=== PATIENT | female | born 2000 | race Caucasian/White ===

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

== ENCOUNTER 2021-11-03 05:40 | Inpatient (IN) ==
--- NOTE | 2021-10-24 11:04 | Anesthesiology Consultation ---
Date of Service October 24, 2021 Assessment & Plan (1) Encounter for pre-operative examination: COVID screening: Per assessment on 10/24: No known COVID-19 positive contacts or current COVID-19 related symptoms. Travel screen negative. Patient vaccinated. 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 History Surgery Operation Date: 11/03/21 07:30 Proposed Procedures p Section in LD (Delivery of Baby Through Abdominal Incision) - Ten Cope MD Height/Weight Height: 5 ft 8 in Weight: 83.915 kg Allergies Allergy/AdvReac Type Severity Reaction Status Date / Time Iodinated Contrast Media Allergy Severe Anaphylaxis Verified 10/24/21 08:31 bee venom protein (honey bee) Allergy Intermediate Rash, Verified 10/24/21 10:25 swelling, headache, scratchy throat gluten Allergy Unknown Celiac - Verified 10/24/21 10:25 GI issues oxytocin [From Pitocin] Allergy Unknown Chest Verified 10/24/21 10:25 pain, difficulty breathing Medications Home Medications Medication Instructions Recorded Confirmed Last Taken epinephrine 0.3 mg/0.3 mL 0.3 ml IM ONCE PRN anaphylaxis #2 01/05/20 10/24/21 Unknown injection, auto-injector ea [id number] 3-fat com #1 27 1 cap PO QPM 04/26/20 10/24/21 Unknown mg-1 mg-300 mg capsule ferrous sulfate [Iron (ferrous 1 tab PO QPM 08/19/21 10/24/21 Unknown sulfate)] Past Medical History Medical History Allergic rhinitis Anxiety Childhood celiac disease Chronic back pain Chronic headaches Depression GERD (gastroesophageal reflux disease) Hiatal hernia History of COVID-19 Dx 05/2021, Flu-like symptoms, fatigue and fever at time > resolved Migraine Hx Mobitz type 1 second degree AV block Noted during 2014 ER visit for syncope. Patient subsequently seen by cardio for syncope evaluation ()- syncope was suspected vasovagal/normal subsequent EKGs. Not noted on most recent EKG 11/27/20. Past Family History Family History Grandmother (Maternal) Cardiac disorder Myocardial infarction Father Diabetes Fibromyalgia Hypercholesterolemia Peripheral vascular disease Grandmother (Paternal) Ovarian cancer Diabetes Fibromyalgia Hypercholesterolemia Breast cancer Family history of reaction to anesthesia SLOW TO WAKE UP/PONV Hypertension Mother Breast cancer H/O: hysterectomy Denies family history of Prostate cancer Past Surgical History Surgical History H/O hernia repair History of colonoscopy 2018 History of esophagogastroduodenoscopy (EGD) Hx of section S/P laparoscopy Diagnostic Lap for endometriosis Social History Smoking Status: Never smoker Do You Dip or Chew Tobacco: No Hx Alcohol Use: No Hx Substance Use: No substance use type: does not use Lab Results Anesthesia Preop Results Results Anesthesia Widget: Hgb 10.0 g/dl (12.0-16.0) L 09/15/21 Hct 30.7 % (34.1-44.9) L 09/15/21 Urine Color Yellow 10/03/21 Urine Appearance Clear (Clear) 10/03/21 Urine pH 7.5 (4.5-7.5) 10/03/21 Urine Specific Homer 1.018 (1.000-1.030) 10/03/21 Urine Protein Negative (Negative) 10/03/21 Urine Glucose (UA) Negative (Negative) 10/03/21 Urine Ketones Negative (Negative) 10/03/21 Urine Blood Negative (Negative) 10/03/21 Urine Nitrite Negative (Negative) 10/03/21 Urine Bilirubin Negative (Negative) 10/03/21 Urine Urobilinogen Negative (Negative) 10/03/21 Urine Leukocyte Esterase Negative (Negative) 10/03/21 Testing Electrocardiogram Date: 11/27/20 SR at 63bpm. "Normal ECG"
[2021-11-03] MEDS ORDERED: SODIUM CHLORIDE 0.9% 250 ML IV PRN (05:55)
[2021-11-03] MEDS ORDERED: CITRIC ACID/SODIUM CITRATE 15 ML UDC PO SCH (06:00)
[2021-11-03] MEDS ORDERED: ceFAZolin 2,000 MG in SYRINGE 0 ML IV SCH (06:00)
[2021-11-03] MEDS ORDERED: LACTATED RINGER'S 1,000 ML IV SCH (06:00)
[2021-11-03 06:28] LABS: Basophils # (auto) 0.02 K/uL (0-0.2); Basophils % (auto) 0.3 %; Eosinophils # (auto) 0.13 K/uL (0-0.50); Eosinophils % (auto) 1.7 %; Hematocrit (blood only) 30.2 % (34.1-44.9); Hemoglobin 9.6 g/dl (12.0-16.0); Immature Granulocytes # (auto) 0.04 K/uL (0.00-0.02); Immature Granulocytes % (auto) 0.5 %; Lymphocytes # (auto) 2.19 K/uL (1.2-3.4); Lymphocytes % (auto) 29.2 %; Mean Corpuscular Hemoglobin 27.4 pg (25.0-34.0); Mean Corpuscular Hgb Conc 31.8 g/dL (32.0-36.0); Mean Platelet Volume 10.6 fL (9.4-12.3); Monocytes # (auto) 0.77 K/uL (0.24-0.82); Monocytes % (auto) 10.3 %; Neutrophils # (auto) 4.35 K/uL (1.4-6.5); Platelet Count 190 K/uL (130-400); RDW Standard Deviation 49.9 fL (36.4-46.3); Red Blood Count 3.51 M/uL (3.93-5.22)
[2021-11-03 07:06] LABS: Appearance Urine Clear (Clear); Bilirubin Urine Negative (Negative); Blood Urine Negative (Negative); Color Urine Yellow; Glucose Urine UA Negative (Negative); Ketones Urine Trace (Negative); Leukocyte Esterase Urine Negative (Negative); Nitrite Urine Negative (Negative); Protein Urine Negative (Negative); Urobilinogen Urine Negative (Negative)
--- NOTE | 2021-11-03 07:23 | History & Physical Report ---
Date of Service November 03, 2021 Assessment & Plan (1) Previous delivery affecting , antepartum: (2) Short interval between pregnancies affecting , antepartum: (3) Supervision of normal intrauterine in multigravida: Plan 20yo at 39w5d [place]. Planned repeat . 1. Fetus: Cat 1 2. - Consents signed 3. Vitals normal 4. PPH risk moderate - T&S Admission and Anticipated Discharge Date Admission Date: November 03, 2021 History of Present Illness Primary Care Provider: Amarilys Mcleod, DO 20yo at 39w5d GA. Presents for repeat with HX of LTCS x2. Initial OB Labs (04/21/21) Blood Type & RH O positive Antibody Screen negative HCT/HGB 39.9/12.9 Platelets 242 Hep C IgG 13yrs+ Old negative Pap Test normal (03/20/21) Chlamydia negative Gonorrhea negative Rubella immune RPR negative Urine Culture/Screen HBsAg non reactive HIV negative MCV NT WNL cf/sma neg in first per her report--[facility] NT test at 13 weeks normal--[facility] Allergies Allergy/AdvReac Type Severity Reaction Status Date / Time Iodinated Contrast Media Allergy Severe Anaphylaxis Verified 10/29/21 15:14 bee venom protein (honey bee) Allergy Intermediate Rash, Verified 10/29/21 15:14 swelling, headache, scratchy throat gluten Allergy Unknown Celiac - Verified 10/29/21 15:14 GI issues oxytocin [From Pitocin] Allergy Unknown Chest Verified 10/29/21 15:14 pain, difficulty breathing Home Medications Medication Instructions Recorded Confirmed Type [id number]-[id number]-omega 3-fat com #1 27 1 cap PO QPM 04/26/20 11/03/21 History mg-1 mg-300 mg capsule ferrous sulfate [Iron (ferrous 1 tab PO QPM 08/19/21 11/03/21 History sulfate)] Patient History Medical History Allergic rhinitis Anxiety Childhood celiac disease Chronic back pain Chronic headaches Depression GERD (gastroesophageal reflux disease) Hiatal hernia History of COVID-19 Dx 05/2021, Flu-like symptoms, fatigue and fever at time > resolved Migraine Hx Mobitz type 1 second degree AV block Noted during 2014 ER visit for syncope. Patient subsequently seen by cardio for syncope evaluation ()- syncope was suspected vasovagal/normal subsequent EKGs. Not noted on most recent EKG 11/27/20. Surgical History H/O hernia repair History of colonoscopy 2018 History of esophagogastroduodenoscopy (EGD) Hx of section S/P laparoscopy Diagnostic Lap for endometriosis Family History Grandmother (Maternal) Cardiac disorder Myocardial infarction Father Diabetes Fibromyalgia Hypercholesterolemia Peripheral vascular disease Grandmother (Paternal) Ovarian cancer Diabetes Fibromyalgia Hypercholesterolemia Breast cancer Family history of reaction to anesthesia SLOW TO WAKE UP/PONV Hypertension Mother Breast cancer H/O: hysterectomy Denies family history of Prostate cancer Social History Smoking Status: Never smoker Second Hand Exposure: No; Do You Dip or Chew Tobacco: No; Hx Alcohol Use: No Hx Substance Use: No Preferred Language: Luxembourgish Communication Ability: Effective Visual Impairment: Limited Hearing Ability: Normal Restrike Hammer Operator Required: No Beliefs That Will Affect Care: None marital status: marital status details: Tj(22) [phone] Current Living Situation: Spouse Current Living Situation Comment: lives with spouse and 2 children. 2 dogs. current occupational status: unemployed current occupation: n/a How many Children do You have: 2 Other Information That Helps Us Care for You: No Feels Safe at Home: Yes Safety Concerns: Feels Safe At This Time Childhood Exposure to Second-Hand Smoke: No caffeine: Yes (drinks tea daily) during the past year weight has: remained stable Dental Care, Regularly: Yes Physical Activity Frequency: 1-2 Times per Week Seatbelt Use: always Sunscreen Use: Yes Assistive Devices: Glasses Physical Exam Constitutional: WD/WN, vitals as above well developed, well nourished and + well hydrated; no acute distress Eyes: PERRL, conjunctivae normal, anicteric sclerae Neck: trachea midline, no thyromegaly Respiratory: normal respiratory effort, lungs clear to auscultation no respiratory distress, no labored breathing and no cough Cardiovascular: RRR, no murmur, no edema Heart Sounds: normal S1 and normal S2 Gastrointestinal (Abdomen): normal bowel sounds, soft, nontender, no hepatosplenomegaly Inspection/Auscultation: abdomen normal to inspection Percussion/Palpation: abdomen soft; abdomen nontender, no guarding and abdomen not rigid Skin: no rashes, warm and dry normal turgor Psychiatric: A+Ox3, euthymic affect Apperance: appropriately dressed and appropriately groomed Genitourinary: OB Exam Abdomen: + vertex OB Exam Monitor Tracing: + external FHT monitor used, + external uterine monitor used, + category I and + normal FHT variability Results & Data ([facility]) Vital Signs (Past 12 Hours) Vital Signs Temp Pulse Resp BP 11/03/21 07:06 36.8 C 88 16 112/70 11/03/21 05:55 36.6 C 18 11/03/21 07:10 88 112/70 11/03/21 05:51 88 114/68 Coding Level of Care Code None Diagnoses Previous delivery affecting , antepartum O34.219 Short interval between pregnancies affecting , antepartum O09.899 Supervision of normal intrauterine in multigravida Z34.80
[2021-11-03] MEDS ORDERED: MoRPHine SULFATE PF 1 MG/ML 10 ML AMP/VIAL ONE (07:26)
[2021-11-03] MEDS ORDERED: MIDAZOLAM HCL 1 MG/ML 2ML VIAL ONE (08:19)
[2021-11-03] MEDS ORDERED: ONDANSETRON INJ 2 MG/ML 2 ML VIAL ONE (08:31)
[2021-11-03] MEDS ORDERED: fentaNYL citrate 100 MCG/2 ML VIAL ONE (08:33)
[2021-11-03] MEDS ORDERED: HYDROmorphone INJ 0.5 MG/0.5 ML SYR IV PRN (08:36)
[2021-11-03] MEDS ORDERED: MoRPHine SULFATE PF 1 MG/ML 10 ML AMP/VIAL INT SPINAL ONE (08:36)
[2021-11-03] MEDS ORDERED: NALOXONE HCL 1 MG in SODIUM CHLORIDE 0.9% 1000ML 1,000 ML IV PRN (08:36)
[2021-11-03] MEDS ORDERED: ONDANSETRON INJ 2 MG/ML 2 ML VIAL IV PRN (08:36)
[2021-11-03] MEDS ORDERED: LACTATED RINGER'S 500 ML IV PRN (08:36)
[2021-11-03] MEDS ORDERED: ePHEDrine sulfate 50 MG/ML AMP IV PRN (08:36)
[2021-11-03] MEDS ORDERED: NALOXONE HCL 0.08 MG in SYRINGE 1.8 ML IV PRN (08:36)
[2021-11-03] MEDS ORDERED: diphenhydrAMINE 50 MG/ML VIAL IV PRN (08:36)
[2021-11-03] MEDS ORDERED: NALOXONE HCL 0.4 MG/1 ML VIAL/CARP IV PRN (08:36)
[2021-11-03] MEDS ORDERED: NALBUPHINE HCL INJ 10 MG/ML AMP IV PRN (08:36)
[2021-11-03] MEDS ORDERED: PHENYLEPHRINE 100MCG/ML 5ML SYR ONE (08:40)
[2021-11-03] MEDS ORDERED: OXYTOCIN 10 UNITS/ML 10ML VIAL ONE (08:40)
[2021-11-03] MEDS ORDERED: SODIUM CHLORIDE 0.9% 1000ML 1,000 ML IV SCH (08:45)
[2021-11-03] MEDS ORDERED: NO NARCOTICS OR SEDATIVES SCH (08:45)
[2021-11-03] MEDS ORDERED: DC INTRASPINAL MORPHINE SCH (08:45)
--- NOTE | 2021-11-03 08:59 | Post Operative Brief Note ---
PG Immediate Post Op with CF Date of Surgery November 03, 2021 Pre & Post Diagnosis Operation Date: 11/03/21 07:30 Pre-Op Diagnosis: Hx of Section, desires repeat Post-Op Diagnosis: Same as pre-op I identified the patient and participated in the time-out.: Yes Procedure Operation Date: 11/03/21 07:30 Actual Procedures p Section in LD (Delivery of Baby Through Abdominal Incision); Live female child at 0816(Bilateral) - Ten Cope MD Surgeon Ten Cope MD College Archivist Dr. Santiago Estimated Blood Loss 600 Findings Consistent with Post-Op Diagnosis Specimens Specimen Description: Placenta-hold Cord Blood Drains De León Catheter (Inserted after spinal, patent and draining clear yellow urine throughout procedure.) OB Procedure charges OB Charges 63544
[2021-11-03] MEDS ORDERED: KETOROLAC 30 MG/ML VIAL IV ONE (11:40)
[2021-11-03] MEDS ORDERED: MAGNESIUM HYDROXIDE SUSP 30 ML UDC PO PRN (12:21)
[2021-11-03] MEDS ORDERED: HYDROCORTISONE ACETATE 25 MG SUPP PR PRN (12:21)
[2021-11-03] MEDS ORDERED: SENNA 8.6 MG TAB PO PRN (12:21)
[2021-11-03] MEDS ORDERED: BENZOCAINE 20% AER SPR 82.5 GM CAN EXT PRN (12:21)
[2021-11-03] MEDS ORDERED: DIPHTHERIA/TETANUS/PERTUSSIS 0.5 ML SYR/VIAL IM ONE (12:21)
[2021-11-03] MEDS: LACTATED RINGER'S 1,000 ML IV SCH ×2 (12:53→21:00)
[2021-11-03] MEDS: SIMETHICONE 80 MG CHEW PO SCH ×3 (12:53→20:30)
--- NOTE | 2021-11-03 13:56 | Anesthesiology Progress Note ---
Date of Service November 03, 2021 Anesthesia Post Procedure Vital Signs Vital Signs: Temp Pulse Pulse Resp BP BP Pulse Ox 11/03/21 13:00 16 98 11/03/21 11:15 80 16 113/57 L 100 11/03/21 12:15 16 97 11/03/21 11:53 16 100 11/03/21 11:53 36.7 C 73 16 96/61 L 100 11/03/21 10:15 84 16 108/56 L 99 11/03/21 10:05 78 16 117/63 99 11/03/21 10:35 71 16 109/55 L 11/03/21 09:45 79 16 103/70 99 11/03/21 09:35 90 16 97/72 L 98 11/03/21 09:25 66 18 103/64 99 11/03/21 10:45 84 16 100/61 99 11/03/21 09:15 36.5 C 68 18 106/63 97 11/03/21 09:18 36.5 C 68 16 106/63 98 11/03/21 07:06 36.8 C 88 16 112/70 11/03/21 05:55 36.6 C 18 11/03/21 11:25 81 109/56 L 11/03/21 11:21 77 100 11/03/21 11:16 100 11/03/21 11:16 83 11/03/21 11:16 81 113/57 L 11/03/21 11:11 78 100 11/03/21 11:06 71 100 11/03/21 11:05 68 107/70 11/03/21 11:01 79 99 11/03/21 10:56 77 100 11/03/21 10:55 71 111/67 11/03/21 10:51 80 100 11/03/21 10:46 100 11/03/21 10:46 80 11/03/21 10:46 81 100/61 11/03/21 10:41 79 100 11/03/21 10:36 70 100 11/03/21 10:35 75 110/57 L 11/03/21 10:31 79 99 11/03/21 10:26 99 11/03/21 10:26 76 11/03/21 10:26 74 116/60 11/03/21 10:21 80 100 11/03/21 10:16 72 99 11/03/21 10:15 75 108/56 L 11/03/21 10:11 75 100 11/03/21 10:06 74 117/63 99 11/03/21 10:01 78 100 11/03/21 09:56 99 11/03/21 09:56 67 11/03/21 09:56 71 109/55 L 11/03/21 09:51 71 99 11/03/21 09:46 99 11/03/21 09:46 82 11/03/21 09:46 79 103/70 11/03/21 09:41 75 100 11/03/21 09:36 76 98 11/03/21 09:35 90 97/72 L 11/03/21 09:31 75 99 11/03/21 09:26 59 L 99 11/03/21 09:25 68 103/64 11/03/21 09:18 68 106/63 11/03/21 09:09 69 106/64 11/03/21 07:10 88 112/70 11/03/21 05:51 88 114/68 O2 Del Method 11/03/21 13:00 11/03/21 11:15 Room Air 11/03/21 12:15 11/03/21 11:53 11/03/21 11:53 Room Air 11/03/21 10:15 11/03/21 10:05 11/03/21 10:35 11/03/21 09:45 11/03/21 09:35 11/03/21 09:25 11/03/21 10:45 Room Air 11/03/21 09:15 11/03/21 09:18 Room Air 11/03/21 07:06 11/03/21 05:55 11/03/21 11:25 11/03/21 11:21 11/03/21 11:16 11/03/21 11:16 11/03/21 11:16 11/03/21 11:11 11/03/21 11:06 11/03/21 11:05 11/03/21 11:01 11/03/21 10:56 11/03/21 10:55 11/03/21 10:51 11/03/21 10:46 11/03/21 10:46 11/03/21 10:46 11/03/21 10:41 11/03/21 10:36 11/03/21 10:35 11/03/21 10:31 11/03/21 10:26 11/03/21 10:26 11/03/21 10:26 11/03/21 10:21 11/03/21 10:16 11/03/21 10:15 11/03/21 10:11 11/03/21 10:06 11/03/21 10:01 11/03/21 09:56 11/03/21 09:56 11/03/21 09:56 11/03/21 09:51 11/03/21 09:46 11/03/21 09:46 11/03/21 09:46 11/03/21 09:41 11/03/21 09:36 11/03/21 09:35 11/03/21 09:31 11/03/21 09:26 11/03/21 09:25 11/03/21 09:18 11/03/21 09:09 11/03/21 07:10 11/03/21 05:51 Pain Intensity Abdomen: Pain Intensity: 3 Transfer of Care Handoff Completed per policy Notes Mental Status: alert / awake / arousable and participated in evaluation Nausea / Vomiting: adequately controlled Pain: adequately controlled Airway Patency, RR, SpO2: stable & adequate BP & HR: stable & adequate Hydration State: stable & adequate Neuraxial Anesthesia: was administered and sensory block is resolving Anesthetic Complications: no major complications apparent and Pt Satisfied with anesthetic care
--- NOTE | 2021-11-03 14:56 | Operative Report (OR) ---
DATE OF SERVICE: 11/03/2021 PROCEDURE: Repeat low transverse section. SURGEON: Ten Cope MD. JAVA WEB ARCHITECT: Antoinette Santiago MD. PREOPERATIVE DIAGNOSES: 1. Single intrauterine at 39 weeks 5 days gestational age. 2. History of x2, desired repeat. POSTOPERATIVE DIAGNOSES: 1. Single intrauterine at 39 weeks 5 days gestational age. 2. History of x2, desired repeat. 3. Status post procedure. ESTIMATED BLOOD LOSS: 600 mL DRAINS: None. FLUIDS: Continuous lactated Ringer. URINE OUTPUT: Per De León catheter. FLUIDS: Continuous lactated Ringer. URINE OUTPUT: Per De León catheter. COMPLICATIONS: None. FINDINGS: Viable female with weight and Apgars pending. DESCRIPTION OF PROCEDURE: The patient was taken to the operating room after consents were assured. Upon presentation, she was properly identified, spinal anesthesia was obtained without difficulty. Ivonne he patient was then prepped and draped in normal sterile fashion. Preprocedural timeout was shamir d. A Pfannenstiel incision was made with a knife. This was carried down to underlying fascia with ivonne mascorro Bovie. The patient's prior incision was noted to have significant scarring and a scar revision wa s also performed and the portion of scar disposed off. The fascia was nicked at the midline with a kn rafael. This was extended laterally with pickups and Stark scissors. The fascia was then grasped with K laraers x2, elevated off the underlying rectus muscles using blunt dissection. Inferior aspect of the fascia was grasped with Kochers x2 and elevated off the underlying rectus muscles using blunt dissec tion and Stark scissors. There was already noted to be a midline opening and this was placed on [facility] to provide adequate room for delivery and a bladder blade was inserted. Bladder flap was created and a low transverse uterine incision was made with a knife. This was extended laterally with tracti on to provide adequate room for delivery of the head and the head of the was noted to be in c ephalic position, delivered without difficulty, body and shoulders quickly followed. was not ed to be vigorous upon delivery and a very second delayed cord clamping was initiated. Cord was then double clamped and cut. taken over to the waiting nursery staff. Cord blood was obtained. Attention was then turned to delivery of placenta, which was delivered intact, 3-vessel cord, gentle cord traction. The uterus was then exteriorized. Several passes were made inside to remove any rem aining membranes with a dry lap. The uterus was wrapped in a wet lap. The hysterotomy was then reap proximated with 0 Vicryl continuous running lock stitch. A second imbricating layer of 0 Vicryl was then performed. The posterior cul-de-sac was cleaned of clots and debris. The hysterotomy was noted to be hemostatic. Uterus returned to the maternal abdomen. Right and left pericolic gutters were c leaned of clots and debris. The hysterotomy was noted to have continuous hemostasis. The patient sp raymundo of Retzius, subcutaneous and muscle layers were inspected and noted to be hemostatic. The fascia was then reapproximated with 0 Vicryl continuous running stitch. The subcutaneous layers were reapp roximated with a 2-0 plain in a single continuous running stitch. The skin was reapproximated with 3 -0 Vicryl in a subcuticular stitch and a compression bandage was placed on top. Needle, sponge, and instrument counts were correct at the completion of the case. Both mother and stable in the immediate post-delivery period. Job ID: [id number]
[2021-11-03] MEDS: IBUPROFEN 600 MG TAB PO PRN ×2 (16:21→20:30)
[2021-11-03] MEDS ORDERED: oxyCODONE/ACETAMINOPHEN 5mg/325mg TAB PO PRN (19:48)
[2021-11-03] MEDS: DOCUSATE SODIUM 100 MG CAP PO SCH (20:29)
[2021-11-04] MEDS ORDERED: KETOROLAC 30 MG/ML VIAL ONE (01:23)
[2021-11-04] MEDS ORDERED: KETOROLAC 30 MG/ML VIAL IV ONE (01:32)
[2021-11-04] MEDS ORDERED: KETOROLAC 30 MG/ML VIAL IV PRN (02:37)
[2021-11-04] MEDS ORDERED: ONDANSETRON INJ 2 MG/ML 2 ML VIAL IV PRN (02:37)
[2021-11-04] MEDS ORDERED: diphenhydrAMINE Capsule 25 MG CAP PO PRN (02:37)
[2021-11-04] MEDS ORDERED: diphenhydrAMINE 50 MG/ML VIAL IV PRN (02:37)
[2021-11-04] MEDS ORDERED: PROMETHAZINE HCL 25 MG in SODIUM CHLORIDE 0.9% 50 ML IV PRN (02:37)
[2021-11-04 06:16] LABS: Basophils # (auto) 0.02 K/uL (0-0.2); Basophils % (auto) 0.2 %; Eosinophils # (auto) 0.15 K/uL (0-0.50); Eosinophils % (auto) 1.7 %; Hematocrit (blood only) 27.5 % (34.1-44.9); Hemoglobin 8.9 g/dl (12.0-16.0); Immature Granulocytes # (auto) 0.03 K/uL (0.00-0.02); Immature Granulocytes % (auto) 0.3 %; Lymphocytes # (auto) 1.97 K/uL (1.2-3.4); Lymphocytes % (auto) 22.8 %; Mean Corpuscular Hgb Conc 32.4 g/dL (32.0-36.0); Mean Corpuscular Volume 86.5 fL (80.0-100.0); Mean Platelet Volume 11.2 fL (9.4-12.3); Monocytes # (auto) 1.09 K/uL (0.24-0.82); Monocytes % (auto) 12.6 %; Neutrophils # (auto) 5.39 K/uL (1.4-6.5); Neutrophils % (auto) 62.4 %; Platelet Count 182 K/uL (130-400); RDW Standard Deviation 50.1 fL (36.4-46.3); Red Blood Count 3.18 M/uL (3.93-5.22); White Blood Count 8.65 K/ul (4.8-10.8)
--- NOTE | 2021-11-04 06:52 | Obstetrical Progress Note ---
Date of Service <Tangela Holbrook MD - Last Filed: 11/04/21 07:40> November 04, 2021 Assessment & Plan <Tangela Holbrook MD - Last Filed: 11/04/21 07:40> (1) Encounter for care and examination after delivery: PPD1 satisfactory progress. encourage ambulation follow up in 6 weeks <Raysa Mendieta MD, FACOG - Last Filed: 11/04/21 07:46> (1) Encounter for care and examination after delivery: Subjective <Tangela Holbrook MD - Last Filed: 11/04/21 07:40> Ambulation: ambulating normally Voiding: no voiding problems Passing Gas:: Yes Diet Tolerance:: regular diet Lochia:: Moderate Feeding Type:: breast feeding Physical Exam <Tangela Holbrook MD - Last Filed: 11/04/21 07:40> Constitutional WD/WN, vitals as above no acute distress Respiratory normal respiratory effort, lungs clear to auscultation Cardiovascular RRR, no murmur, no edema Extremities: no calf tenderness Gastrointestinal (Abdomen) uterus firm at the level of the umbilicus, abdominal bandage in place - c/d/i, no purulent discharge or strike through Psychiatric A+Ox3, euthymic affect Results & Data ([facility]) <Tangela Holbrook MD - Last Filed: 11/04/21 07:40> Vital Signs (Past 12 Hours) Vital Signs Temp Pulse Resp BP Pulse Ox Pulse Ox Pulse Ox 11/04/21 02:00 20 100 11/04/21 03:20 36.9 C 70 18 96/60 L 95 11/04/21 03:20 95 11/04/21 01:00 18 96 11/04/21 00:00 20 97 11/03/21 23:04 36.8 C 72 18 90/54 L 97 11/03/21 23:04 97 11/03/21 23:04 18 97 11/03/21 22:08 18 96 11/03/21 21:00 18 97 11/03/21 20:00 20 100 11/03/21 19:30 20 99 11/03/21 19:30 36.6 C 80 20 99/64 L 99 11/03/21 19:05 18 98 O2 Del Method O2 Del Method O2 Del Method 11/04/21 02:00 11/04/21 03:20 Room Air 11/04/21 03:20 Room Air 11/04/21 01:00 11/04/21 00:00 11/03/21 23:04 Room Air 11/03/21 23:04 Room Air 11/03/21 23:04 11/03/21 22:08 11/03/21 21:00 11/03/21 20:00 11/03/21 19:30 11/03/21 19:30 Room Air 11/03/21 19:05 <Raysa Mendieta MD, FACOG - Last Filed: 11/04/21 07:46> Co-Signing Physician Notes Resident Physician Supervision Note: I was present with DrIzabela [Name of resident] during the history and exam. I discussed the case with the resident and agree with the findings and plan as documented in the note. Any exceptions or clarifications are listed here: [None] Documented By: Raysa Mendieta MD, FACOG Resident Activity Tracking <Tangela Holbrook MD - Last Filed: 11/04/21 07:40> Resident Involvement: Resident Care Provided Care Provided: Adult Hospital Medicine
[2021-11-04] MEDS: FERROUS SULFATE 325 MG TAB PO SCH (08:35)
[2021-11-04] MEDS: PRENATAL VITAMIN 1 TAB PO SCH (08:35)
[2021-11-04] MEDS: SIMETHICONE 80 MG CHEW PO SCH ×4 (08:35→21:14)
[2021-11-04] MEDS: DOCUSATE SODIUM 100 MG CAP PO SCH ×2 (08:35→21:14)
[2021-11-04] MEDS: IBUPROFEN 600 MG TAB PO PRN ×2 (10:03→21:14)
[2021-11-04] MEDS: oxyCODONE/ACETAMINOPHEN 5mg/325mg TAB PO PRN (18:16)
[2021-11-04] MEDS ORDERED: bisacodyL 5 MG TABEC PO SCH (20:00)
[2021-11-05] MEDS: IBUPROFEN 600 MG TAB PO PRN (02:09)
[2021-11-05] MEDS: oxyCODONE/ACETAMINOPHEN 5mg/325mg TAB PO PRN (02:09)
[2021-11-05 06:37] LABS: Hematocrit (blood only) 30.2 % (34.1-44.9); Hemoglobin 9.3 g/dl (12.0-16.0)
--- NOTE | 2021-11-05 06:43 | Obstetrical Progress Note ---
Date of Service <Tangela Holbrook MD - Last Filed: 11/05/21 07:22> November 05, 2021 Assessment & Plan <Tangela Holbrook MD - Last Filed: 11/05/21 07:22> (1) Encounter for care and examination after delivery: PPD2 satisfactory progress. incision is c/d/i. cleared for discharge from an ob perspective follow up in 6 weeks <Marivel Us DO - Last Filed: 11/05/21 07:31> (1) Encounter for care and examination after delivery: Subjective <Tangela Holbrook MD - Last Filed: 11/05/21 07:22> Ambulation: ambulating normally Voiding: no voiding problems Passing Gas:: Yes Diet Tolerance:: regular diet Feeding Type:: breast feeding Patient notes a small amount of blood leaking from the right side of her incision Review of Systems no f/c/SOB/cp/calf tenderness/abdominal pain Physical Exam <Tangela Holbrook MD - Last Filed: 11/05/21 07:22> Constitutional WD/WN, vitals as above no acute distress Respiratory normal respiratory effort, lungs clear to auscultation Cardiovascular RRR, no murmur, no edema Extremities: no calf tenderness Gastrointestinal (Abdomen) incision c/d/i, no purulent discharge, no erythema, no hematoma/seroma uterine fundus firm at 1 cm below the level of the umbilicus Psychiatric A+Ox3, euthymic affect Results & Data ([facility]) <Tangela Holbrook MD - Last Filed: 11/05/21 07:22> Vital Signs (Past 12 Hours) Vital Signs Temp Pulse Resp BP Pulse Ox O2 Del Method 11/04/21 23:50 36.7 C 77 18 101/67 96 Room Air 11/04/21 19:35 Room Air 11/04/21 19:35 36.5 C 72 18 104/67 98 Room Air <Marivel Us DO - Last Filed: 11/05/21 07:31> Co-Signing Physician Notes Resident Physician Supervision Note: I was present with Dr. Holbrook during the history and exam. I discussed the case with the resident and agree with the findings and plan as documented in the note. Any exceptions or clarifications are listed here: POD#2 doing well, desires DC home. Reviewed DC instructions, will followup 6w in office. Rx #20 percocet tabs. Documented By: Marivel Us, DO Resident Activity Tracking <Tangela Holbrook MD - Last Filed: 11/05/21 07:22> Resident Involvement: Resident Care Provided Care Provided: Adult Hospital Medicine
[2021-11-05] MEDS: DOCUSATE SODIUM 100 MG CAP PO SCH (08:27)
[2021-11-05] MEDS: PRENATAL VITAMIN 1 TAB PO SCH (08:27)
[2021-11-05] MEDS: SIMETHICONE 80 MG CHEW PO SCH (08:27)
[2021-11-05] MEDS: FERROUS SULFATE 325 MG TAB PO SCH (08:27)
[2021-11-05] MEDS ORDERED: bisacodyL 10 MG SUPP PR PRN (12:21)
--- NOTE | 2021-11-08 02:29 | Discharge Summary (DS) ---
DATE OF ADMISSION: 11/03/2021 DATE OF DISCHARGE: 11/05/2021 HOSPITAL COURSE: The patient was admitted for a scheduled repeat low transverse section. Pr ocedure was performed without complication. The patient remained in-house until day #2, a t which time she was meeting criteria for discharge and desired to be discharged. The patient was di scharged home in stable condition and was provided both written and verbal discharge instructions. T he patient was planned to have followup at 6 weeks or as needed otherwise. Job ID: [id number]
== END 2021-11-05 11:07 | disposition home or self-care (01) | DRG 788 ==
LOC: 4S1 05:40 → EDSTATUS 07:30 → 4E2 12:15

== ENCOUNTER 2025-01-18 05:31 | Inpatient (IN) ==
--- NOTE | 2025-01-08 16:31 | Anesthesiology Consultation ---
Date of Service January 08, 2025 Assessment & Plan (1) Encounter for pre-operative examination: Infectious disease screening: Per assessment on 01/08/25- No known recent infectious disease contacts or current infectious disease symptoms. Chart Review Chart Review: customs entry clerk initiated History Surgery Operation Date: 01/18/25 07:30 Proposed Procedures p Section (Delivery of Baby Through Abdominal Incision) - Socorro Alvarenga MD Height/Weight Height: 5 ft 7.5 in Weight: 85.548 kg Allergies Allergy/AdvReac Type Severity Reaction Status Date / Time Iodinated Contrast Media Allergy Severe Anaphylaxis Verified 01/08/25 15:37 adhesive Allergy Unknown Rash, skin Verified 01/08/25 16:20 peeling bee venom protein (honey bee) Allergy Unknown Rash, Verified 01/08/25 15:37 swelling, headache, scratchy throat gluten Allergy Unknown Celiac - Verified 01/08/25 15:37 GI issues latex Allergy Unknown Rash (with Verified 01/08/25 16:20 extended use) Medications Home Medications Medication Instructions Recorded Confirmed Last Taken AKD-yvoe-XV-omega 3 fatty no.1 27 1 cap PO QPM 04/26/20 01/08/25 11/02/23 mg-1 mg-300 mg capsule Migraine Medication 1 dose PO UD PRN migraines 01/08/25 01/08/25 Unknown ferrous sulfate 325 mg (65 mg 65 mg PO DAILY 01/08/25 01/08/25 Unknown iron) tablet (iron) Past Medical History Medical History Allergic rhinitis Seasonal Anxiety Controlled without medication currently Autism Childhood celiac disease Dx as child Chronic back pain Chronic headaches GERD (gastroesophageal reflux disease) Current, no issues outside of Hiatal hernia No current issues History of COVID-19 Dx 05/2021, Flu-like symptoms, fatigue and fever at time > resolved History of depression Migraines Currently under control Mobitz type 1 second degree AV block Noted during 2014 ER visit for syncope. Patient subsequently seen by cardio for syncope evaluation ()- syncope was suspected vasovagal/normal subsequent EKGs. Not noted on most subsequent EKG OCD (obsessive compulsive disorder) Past Family History Family History Grandmother (Maternal) Cardiac disorder Myocardial infarction Father Diabetes Fibromyalgia Hypercholesterolemia Peripheral vascular disease Grandmother (Paternal) Ovarian cancer Diabetes Fibromyalgia Hypercholesterolemia Breast cancer Family history of reaction to anesthesia SLOW TO WAKE UP/PONV Hypertension Mother Breast cancer H/O: hysterectomy Denies family history of Prostate cancer Past Surgical History Surgical History H/O hernia repair History of anesthesia reaction With most recent c/s in 2021, had some anxiety issues and needed some sedation after baby was out, [facility] Hx feeling "shaky" after all c-sections History of colonoscopy 2017 History of esophagogastroduodenoscopy (EGD) History of postoperative nausea and vomiting Hx of section x3 S/P laparoscopy Diagnostic Lap for endometriosis Social History Smoking Status: Never smoker Do You Dip or Chew Tobacco: No Hx Alcohol Use: No alcohol intake frequency: other Alcohol Intake Frequency Comment: none current Hx Substance Use: No substance use type: does not use
[~2025-01-18 05:31] MED LIST changes: -CYPR4TAB31 PO; +LACTATED RINGER'S 1,000 ML IV SCH; -LORA10CA2 PO; -MONT1TAB5 PO
[2025-01-18] MEDS: LACTATED RINGER'S 1,000 ML IV SCH (06:00)
[2025-01-18] MEDS: ACETAMINOPHEN 500 MG TAB PO SCH (06:08)
[2025-01-18 06:14] LABS: Hematocrit (blood only) 32.7 % (37.0-47.0); Hemoglobin 11.1 g/dL (12.0-16.0); Immature Granulocytes # (auto) 0.06 K/uL (0.01-0.20); Immature Granulocytes % (auto) 0.5 %; Mean Corpuscular Hemoglobin 30.8 pg (25.0-34.0); Mean Corpuscular Volume 90.8 fL (80.0-100.0); Platelet Count 180 K/uL (130-400); RDW Standard Deviation 47.5 fL (36.4-46.3); Red Blood Count 3.60 M/uL (4.20-5.40); White Blood Count 11.60 K/ul (4.8-10.8)
[2025-01-18] MEDS ORDERED: SODIUM CHLORIDE 0.9% 100 ML IV PRN (06:25)
[2025-01-18] MEDS ORDERED: NALOXONE HCL 0.4 MG/1 ML VIAL/CARP IV PRN (07:27)
[2025-01-18] MEDS ORDERED: NALBUPHINE HCL INJ 10 MG/ML AMP IV PRN (07:27)
[2025-01-18] MEDS ORDERED: LACTATED RINGER'S 500 ML IV PRN (07:27)
[2025-01-18] MEDS ORDERED: MoRPHine SULFATE PF 1 MG/ML 10 ML AMP/VIAL INT SPINAL ONE (07:27)
[2025-01-18] MEDS ORDERED: NALOXONE HCL 1 MG in SODIUM CHLORIDE 0.9% 1,000 ML IV PRN (07:27)
[2025-01-18] MEDS ORDERED: KETOROLAC 30 MG/ML VIAL IV PRN (07:27)
[2025-01-18] MEDS ORDERED: ACETAMINOPHEN 1,000 MG/100 ML VIAL IV PRN (07:27)
[2025-01-18] MEDS ORDERED: SODIUM CHLORIDE 0.9% 1,000 ML IV SCH (07:30)
[2025-01-18] MEDS ORDERED: DC INTRASPINAL MORPHINE SCH (07:30)
[2025-01-18] MEDS ORDERED: NO NARCOTICS OR SEDATIVES SCH (07:30)
[2025-01-18] MEDS: CITRIC ACID/SODIUM CITRATE 15 ML UDC PO SCH (07:31)
--- NOTE | 2025-01-18 07:36 | History & Physical Report ---
Date of Service January 18, 2025 Assessment & Plan (1) Previous delivery affecting : Plan Pt is a 24yo female who presents at 39w0d for repeat section. Plan for OR, anesthesia consulted RI, GBS neg Rh pos Plan for routine postop care Admission and Anticipated Discharge Date Admission Date: January 18, 2025 History of Present Illness Chief Complaint: scheduled repeat section Primary Care Provider: Amarilys Mcleod, Pt is a 24yo female who presents at 39w0d for scheduled repeat section. History of 3 prior sections. Of note, complicated by elevated MSAFP, placental lakes and circ umvallate placenta. Denies concerns today. +FM. Allergies Allergy/AdvReac Type Severity Reaction Status Date / Time Iodinated Contrast Media Allergy Severe Anaphylaxis Verified 01/18/25 05:42 adhesive Allergy Unknown Rash, skin Verified 01/18/25 05:42 peeling bee venom protein (honey bee) Allergy Unknown Rash, Verified 01/18/25 05:42 swelling, headache, scratchy throat gluten Allergy Unknown Celiac - Verified 01/18/25 05:42 GI issues latex Allergy Unknown Rash (with Verified 01/18/25 05:42 extended use) Home Medications Medication Instructions Recorded Confirmed Type FMP-jqze-EF-omega 3 fatty no.1 27 1 cap PO QPM 04/26/20 01/17/25 History mg-1 mg-300 mg capsule Migraine Medication 1 dose PO UD PRN migraines 01/08/25 01/17/25 History ferrous sulfate 325 mg (65 mg 65 mg PO DAILY 01/08/25 01/17/25 History iron) tablet (iron) Patient History Medical History Allergic rhinitis Seasonal Anxiety Controlled without medication currently Autism Childhood celiac disease Dx as child Chronic back pain Chronic headaches GERD (gastroesophageal reflux disease) Current, no issues outside of Hiatal hernia No current issues History of COVID-19 Dx 05/2021, Flu-like symptoms, fatigue and fever at time > resolved History of depression Migraines Currently under control Aronitz type 1 second degree AV block Noted during 2014 ER visit for syncope. Patient subsequently seen by cardio for syncope evaluation ()- syncope was suspected vasovagal/normal subsequent EKGs. Not noted on most subsequent EKG OCD (obsessive compulsive disorder) Surgical History H/O hernia repair History of anesthesia reaction With most recent c/s in 2021, had some anxiety issues and needed some sedation after baby was out, [facility] Hx feeling "shaky" after all c-sections History of colonoscopy 2017 History of esophagogastroduodenoscopy (EGD) History of postoperative nausea and vomiting Hx of section x3 S/P laparoscopy Diagnostic Lap for endometriosis Family History Grandmother (Maternal) Cardiac disorder Myocardial infarction Father Diabetes Fibromyalgia Hypercholesterolemia Peripheral vascular disease Grandmother (Paternal) Ovarian cancer Diabetes Fibromyalgia Hypercholesterolemia Breast cancer Family history of reaction to anesthesia SLOW TO WAKE UP/PONV Hypertension Mother Breast cancer H/O: hysterectomy Denies family history of Prostate cancer Social History Smoking Status: Never smoker Second Hand Exposure: No; Do You Dip or Chew Tobacco: No; Hx Alcohol Use: No Hx Substance Use: No Preferred Language: American Communication Ability: Effective Visual Impairment: No Limitations Hearing Ability: Normal Portal Developer Required: No Beliefs That Will Affect Care: None marital status: Single marital status details: Romero Julio (34) [phone] Current Living Situation: Spouse, Family and Other Current Living Situation Comment: 3 children and partner current occupational status: employed current occupation: [employer] How many Children do You have: 3 Other Information That Helps Us Care for You: No Feels Safe at Home: Yes Safety Concerns: Feels Safe At This Time Childhood Exposure to Second-Hand Smoke: No Diet: regular caffeine: Yes (drinks tea daily) during the past year weight has: remained stable Dental Care, Regularly: Yes Physical Activity Frequency: 1-2 Times per Week Seatbelt Use: always Sunscreen Use: Yes Assistive Devices: Glasses Results & Data Vital Signs (Past 12 Hours) Vital Signs Temp Pulse Resp BP 01/18/25 05:43 36.6 C 20 01/18/25 05:40 85 111/62 Laboratory Results Laboratory Results - last 24 hr 01/18/25 05:48 WBC 11.60 H RBC 3.60 L Hgb 11.1 L Hct 32.7 L MCV 90.8 MCH 30.8 MCHC 33.9 RDW Std Deviation 47.5 H RDW Coeff of Patricia 14.3 Plt Count 180 MPV 10.5 Immature Gran % (Auto) 0.5 Neut % (Auto) 72.4 Lymph % (Auto) 17.3 [place] % (Auto) 8.6 Eos % (Auto) 0.9 Baso % (Auto) 0.3 Neut # (Auto) 8.39 H Lymph # (Auto) 2.01 [place] # (Auto) 1.00 H Eos # (Auto) 0.11 Baso # (Auto) 0.03 Immature Gran # (Auto) 0.06 Treponema pallidum Ab Pending Blood Type O Positive Antibody Screen NEGATIVE Crossmatch See Detail Coding Level of Care Code None Diagnoses Previous delivery affecting O34.219
[2025-01-18] MEDS ORDERED: MoRPHine SULFATE PF 1 MG/ML 10 ML AMP/VIAL ONE (07:39)
[2025-01-18] MEDS ORDERED: PHENYLEPHRINE HCL 25 MG/250 ML NSS IV ONE (07:40)
[2025-01-18] MEDS ORDERED: OXYTOCIN 10 UNITS/ML VIAL ONE (08:05)
--- NOTE | 2025-01-18 08:46 | Operative Report ---
Post Operative Report Pre & Post Diagnosis Operation Date: 01/18/25 07:30 Pre-Op Diagnosis: Repeat section IUP 39w0d Post-Op Diagnosis: Repeat ceserean section IUP 39w0d Delivery of live male child at 0804 I identified the patient and participated in the time-out.: Yes Procedure Operation Date: 01/18/25 07:30 Actual Procedures p Section, delivery of live male child at 0804 - Socorro Alvarenga MD Surgeon Socorro Alvarenga MD Operations And Maintenance Technician Dr. Lety Benites Quantitative Blood Loss (QBL) 539cc Findings Consistent with Post-Op Diagnosis Normal uterus, fallopian tubes and ovaries. Viable male infant, APGARS 8/9, clear fluid, vertex presentation. Minimal scar tissue present. Fluids per anesthesia Specimens Placenta, cord blood Drains Loomis catheter Anesthesia Type Spinal Complications none Disposition Accompanied Patient To Recovery: Yes Disposition: L&D Indications Patient is a 24yo with 3 prior sections who presented for scheduled repeat section at 39w0d. Description of Procedure The patient was taken to the operating room and identified. After adequate anesthesia was obtained, she was placed in the supine position with a leftward tilt on the operating table and prepped and draped in the usual sterile fashion. A loomis catheter had already been placed. The knife was used to create a Pfannenstiel skin incision that was carried down to the underlying layer of fascia using bovie cautery. The fascia was nicked in the midline and this opening was extended laterally using Stark scissors. Sneha clamps were placed on the superior and inferior aspect of the fascial incision tenting it upward and the underlying rectus muscles were dissected off the overlying fascia both sharply and bluntly using Stark scissors. The rectus muscles were bluntly in the midline. The peritoneal cavity was bluntly entered into. This opening was stretched. The vesicouterine peritoneum was elevated and opened up into and the bladder flap was created digitally. An Cruzito retractor was placed. The knife was used to create a hysterotomy and this opening was stretched. The operators hand was placed through the hysterotomy. The fetus was delivered in the usual fashion atraumatically. The cord was clamped and cut and the infant's mouth and nares were bulb suctioned. The infant was handed off to the awaiting pediatricians. Cord blood was obtained. The uterus was exteriorized and cleared of all clots and debris. Dilute IV Pitocin was begun. The hysterotomy was closed in a running interlocking fashion using 0 monocryl. The hysterotomy was noted to be hemostatic after an imbricating layer was added. The uterus was returned to the abdomen. The gutters were cleared of all clots and debris. The hysterotomy was reinspected and noted to be hemostatic. The fascia was then closed in running fashion using 0 Vicryl. The subcutaneous fat was copiously irrigated and reapproximated using plain gut suture. The skin was closed in a subcuticular fashion using 4-0 monocryl. At this point the procedure was terminated. The patient was transferred to the recovery room in stable condition. All sponge, lap and needle counts are correct x2. I attest to the content of the Intraoperative Record and any orders documented therein. Any exceptions are noted below. OB Procedure Charges 09458 LINSEED OIL PRESS TENDER Miscellaneous Codes Indication for Procedure Indication for procedure: Repeat section
[2025-01-18] MEDS ORDERED: LACTATED RINGER'S 1,000 ML IV SCH (08:52)
[2025-01-18] MEDS ORDERED: DIPHTHER/TETAN/PERTUS Vaccine (Tdap, Adol/Adult) 0.5mL IM ONE (08:52)
[2025-01-18] MEDS ORDERED: CALCIUM CARBONATE 500 MG CHEWABLE TAB PO PRN (08:52)
[2025-01-18] MEDS ORDERED: diphenhydrAMINE Capsule 25 MG CAP PO PRN (08:52)
[2025-01-18] MEDS ORDERED: HYDROCORTISONE ACETATE 25 MG SUPP PR PRN (08:52)
[2025-01-18] MEDS ORDERED: BENZOCAINE 20% SPRY 85 APPLN/85 GM CAN EXT PRN (08:52)
[2025-01-18] MEDS ORDERED: SENNA 8.6 MG TAB PO PRN (08:52)
[2025-01-18] MEDS ORDERED: ZOLPIDEM TARTRATE 5 MG TAB PO PRN (08:52)
[2025-01-18] MEDS ORDERED: ONDANSETRON INJ 2 MG/ML 2 ML VIAL IV PRN (08:52)
[2025-01-18] MEDS ORDERED: MAGNESIUM HYDROXIDE SUSP 30 ML UDC PO PRN (08:52)
[2025-01-18] MEDS ORDERED: PROMETHAZINE 12.5 MG/50.5 ML BAG IV PRN (08:52)
[2025-01-18] MEDS: OXYTOCIN 20 UNITS/LR 1,002 ML IV SCH (10:01)
[2025-01-18] MEDS: KETOROLAC 30 MG/ML VIAL IV SCH (11:31)
--- NOTE | 2025-01-18 11:32 | Anesthesiology Progress Note ---
Date of Service January 18, 2025 Anesthesia Post Procedure Vital Signs Vital Signs: Temp Pulse Resp BP Pulse Ox 01/18/25 10:38 97 01/18/25 10:38 73 01/18/25 10:38 68 96/58 L 01/18/25 10:33 70 97 01/18/25 10:28 76 95/61 L 96 01/18/25 10:23 79 98 01/18/25 10:18 72 94/64 L 97 01/18/25 10:13 75 96 01/18/25 10:08 85 92/51 L 94 01/18/25 10:03 77 98 01/18/25 09:58 97 01/18/25 09:58 71 01/18/25 09:58 66 98/53 L 01/18/25 09:53 87 92 01/18/25 09:48 73 92/58 L 97 01/18/25 09:43 76 96 01/18/25 09:38 84 91/60 L 96 01/18/25 09:33 79 96 01/18/25 09:28 96 01/18/25 09:28 88 01/18/25 09:28 90 99/62 L 01/18/25 09:23 81 96 01/18/25 09:19 78 108/55 L 01/18/25 09:18 76 97 01/18/25 09:13 82 96 01/18/25 09:08 96 01/18/25 09:08 79 01/18/25 09:08 81 90/58 L 01/18/25 09:03 79 98 01/18/25 08:58 73 98/62 L 99 01/18/25 08:53 75 98 01/18/25 08:48 99 01/18/25 08:48 68 01/18/25 08:48 76 98/53 L 01/18/25 08:43 77 99 01/18/25 08:39 75 99/54 L 01/18/25 08:38 75 98 01/18/25 05:43 36.6 C 20 01/18/25 05:40 85 111/62 Transfer of Care Handoff Completed per policy Notes Mental Status: alert / awake / arousable and participated in evaluation Nausea / Vomiting: adequately controlled Pain: adequately controlled Airway Patency, RR, SpO2: stable & adequate BP & HR: stable & adequate Hydration State: stable & adequate Neuraxial Anesthesia: was administered and sensory block is resolving Anesthetic Complications: no major complications apparent and Pt Satisfied with anesthetic care
[2025-01-18] MEDS: ACETAMINOPHEN 325 MG TAB PO SCH (14:28)
[2025-01-18] MEDS: SIMETHICONE 80 MG CHEW PO SCH (14:28)
[2025-01-18] MEDS: DOCUSATE SODIUM 100 MG CAP PO SCH (20:36)
[2025-01-18] MEDS: NALOXONE HCL 0.08 MG in SYRINGE 1.8 ML IV PRN (20:52)
[2025-01-19] MEDS ORDERED: diphenhydrAMINE 50 MG/ML VIAL IV PRN ×2 (01:28)
[2025-01-19] MEDS ORDERED: PROMETHAZINE 6.25 MG/50.25 ML BAG IV PRN (01:28)
[2025-01-19] MEDS ORDERED: ONDANSETRON INJ 2 MG/ML 2 ML VIAL IV PRN ×2 (01:28)
[2025-01-19] MEDS ORDERED: diphenhydrAMINE Capsule 25 MG CAP PO PRN (01:28)
[2025-01-19] MEDS ORDERED: MEPERIDINE HCL 25 MG/ML CARP/VIAL IV PRN (01:28)
[2025-01-19] MEDS ORDERED: MoRPHine SULFATE 4 MG/ML 1 ML CARP\\VIAL IV PRN (01:28)
[2025-01-19] MEDS ORDERED: HYDROmorphone INJ 0.5 MG/0.5 ML SYR IV PRN ×2 (01:28)
[2025-01-19] MEDS ORDERED: ZOLPIDEM TARTRATE 5 MG TAB PO PRN (01:28)
[2025-01-19] MEDS ORDERED: PROMETHAZINE 12.5 MG/50.5 ML BAG IV PRN (01:28)
--- NOTE | 2025-01-19 06:18 | Obstetrical Progress Note ---
Date of Service January 19, 2025 Assessment & Plan (1) care following delivery: Plan 24 yo post- day 1 s/p Feels well today. Vital signs stable Continue post- care Encourage ambulation and Pain controlled with ibuprofen Hgb stable Admission and Anticipated Discharge Date Admission Date: January 18, 2025 Supervising Physician Co-Signing Physician Notes Resident Physician Supervision Note: I interviewed and examined the patient. Discussed with Dr. Joel and agree with findings and plan as documented in the note. Any exceptions or clarifications are listed here: POD#1 from repeat section. Doing well, meeting milestones. Voiding, ambulating, passing flatus. . Incision with clean/dry bandage, uterus firm. Bilateral lower extremity trace edema. Hgb stable at 10.3. Continue routine postop care. Documented By: Socorro Alvarenga MD Subjective 24 yo post- day 1 s/p Ambulation: ambulating normally Voiding: no voiding problems Passing Gas:: Yes Passing Stool:: No Diet Tolerance:: regular diet Lochia:: Small Feeding Type:: breast feeding Current Pain Level: 4/10 Resting comfortably this AM in NAD. Denies LERNER, CP, SOB, N/V/D, LE pain/swelling. Review of Systems Review of Systems: All systems reviewed & are unremarkable except as noted in HPI & below Physical Exam Physical Exam: General: patient resting comfortably, NAD, non-toxic in appearance, AA&O x 4, answers questions appropriately. Skin: warm, dry, intact HEENT: NC/AT, anicteric sclera, conjunctiva without injection, moist mucus membranes. Heart: +S1/S2, regular, no m/r/g Lungs: equal air entry bilaterally, no rales/rhonchi/wheezes Abd: +BS, soft, NT/ND, uterine fundus firm 1 FB below umbilicus, caesarean incision covered in dressing which is C/D/I. Ext: warm, no clubbing/cyanosis or edema, Barbara's neg. Neuro: nonfocal, patient AA&O x 4, speech intact, no facial droop, moving all extremities on command. Results & Data Vital Signs (Past 12 Hours) Vital Signs Temp Pulse Resp BP Pulse Ox O2 Del Method 01/19/25 03:15 36.6 C 72 18 93/61 L 98 Room Air 01/19/25 01:19 18 98 01/19/25 00:36 16 96 01/18/25 23:35 36.5 C 82 18 92/59 L 98 Room Air 01/18/25 22:07 18 97 01/18/25 21:15 16 96 01/18/25 20:50 16 96 01/18/25 19:50 18 97 01/18/25 19:50 36.9 C 82 18 103/67 97 Room Air Laboratory Results OB Labs: Blood Type O Positive 06/22/24 Antibody Screen NEGATIVE 06/22/24 Hgb 11.1 g/dl (12.0-16.0) L 11/08/24 Hct 33.4 % (37.0-47.0) L 11/08/24 MCV 89.7 fL (80.0-100.0) 06/22/24 Plt Count 214 K/uL (130-400) 06/22/24 Rubella IgG Antibody Immune (Immune) 06/22/24 Treponema pallidum Ab Negative (Negative) 11/08/24 Hep Bs Antigen Negative (Negative) 06/22/24 Hepatitis C Antibody Negative (Negative) 06/22/24 HIV 1&2 Ab/P24 Ag 4thGn Negative (Negative) 06/22/24 Glucose 1 Hr 50 gm 111 mg/dl (70-130) 11/08/24 Maternal Serum AFP 89.2 ng/mL 08/11/24 OB Optional Labs: Chlamydia trachomatis RNA Not Detected (NotDetected) 06/22/24 Neisseria gonorrhoeae RNA Not Detected (NotDetected) 06/22/24 Thyroid Stimulating Hormone (TSH) 0.569 uIu/ml (0.300-4.500) 03/20/24 Alpha Fetoprotein Triple Screen SEE NOTE 08/11/24 Resident Activity Tracking Resident Involvement: Resident Care Provided Care Provided: OB Delivery
[2025-01-19 06:49] LABS: Hematocrit (blood only) 29.9 % (37.0-47.0); Hemoglobin 10.3 g/dL (12.0-16.0); Immature Granulocytes # (auto) 0.03 K/uL (0.01-0.20); Immature Granulocytes % (auto) 0.3 %; Mean Corpuscular Hemoglobin 31.7 pg (25.0-34.0); Mean Corpuscular Volume 92.0 fL (80.0-100.0); Platelet Count 182 K/uL (130-400); RDW Standard Deviation 48.0 fL (36.4-46.3); Red Blood Count 3.25 M/uL (4.20-5.40); White Blood Count 9.52 K/ul (4.8-10.8)
[2025-01-19] MEDS: IBUPROFEN 600 MG TAB PO SCH (08:12)
[2025-01-19] MEDS: PRENATAL VITAMIN 1 TAB PO SCH (08:12)
[2025-01-19] MEDS: FERROUS SULFATE 325 MG TAB PO SCH (08:12)
[2025-01-19] MEDS ORDERED: KETOROLAC 30 MG/ML VIAL IV PRN (08:28)
[2025-01-19 23:20] VITALS: RESP 16; O2SAT 98
--- NOTE | 2025-01-20 06:46 | Obstetrical Progress Note ---
Date of Service January 20, 2025 Assessment & Plan (1) care following delivery: Plan 24 yo post- day 2 s/p Feels well today. Vital signs stable Continue post- care Encourage ambulation and Pain controlled with ibuprofen Hgb stable Discharge home today, follow up with Dr. Alvarenga in 6 weeks Admission and Anticipated Discharge Date Admission Date: January 18, 2025 Supervising Physician Co-Signing Physician Notes Resident Physician Supervision Note: I interviewed and examined the patient. Discussed with Dr. Joel and agree with findings and plan as documented in the note. Any exceptions or clarifications are listed here: [None] Documented By: Raysa Mendieta MD, FACOG Subjective 24 yo post- day 2 s/p Ambulation: ambulating normally Voiding: no voiding problems Passing Gas:: Yes Passing Stool:: No Diet Tolerance:: regular diet Lochia:: Small Feeding Type:: breast feeding Current Pain Level: 3/10 Resting comfortably this AM in NAD. Denies LERNER, CP, SOB, N/V/D, LE pain/swelling. Review of Systems Review of Systems: All systems reviewed & are unremarkable except as noted in HPI & below Physical Exam Physical Exam: General: patient resting comfortably, NAD, non-toxic in appearance, AA&O x 4, answers questions appropriately. Skin: warm, dry, intact HEENT: NC/AT, anicteric sclera, conjunctiva without injection, moist mucus membranes. Heart: +S1/S2, regular, no m/r/g Lungs: equal air entry bilaterally, no rales/rhonchi/wheezes Abd: +BS, soft, NT/ND, uterine fundus firm 2 FB below umbilicus, caesarean incision C/D/I. Ext: warm, no clubbing/cyanosis or edema, Barbara's neg. Neuro: nonfocal, patient AA&O x 4, speech intact, no facial droop, moving all extremities on command. Results & Data Vital Signs (Past 12 Hours) Vital Signs Temp Pulse Resp BP Pulse Ox O2 Del Method 01/19/25 23:20 36.6 C 73 16 90/53 L 98 Room Air 01/19/25 19:12 36.9 C 78 18 99/66 L 97 Room Air Laboratory Results OB Labs: Blood Type O Positive 06/22/24 Antibody Screen NEGATIVE 06/22/24 Hgb 11.1 g/dl (12.0-16.0) L 11/08/24 Hct 33.4 % (37.0-47.0) L 11/08/24 MCV 89.7 fL (80.0-100.0) 06/22/24 Plt Count 214 K/uL (130-400) 06/22/24 Rubella IgG Antibody Immune (Immune) 06/22/24 Treponema pallidum Ab Negative (Negative) 11/08/24 Hep Bs Antigen Negative (Negative) 06/22/24 Hepatitis C Antibody Negative (Negative) 06/22/24 HIV 1&2 Ab/P24 Ag 4thGn Negative (Negative) 06/22/24 Glucose 1 Hr 50 gm 111 mg/dl (70-130) 11/08/24 Maternal Serum AFP 89.2 ng/mL 08/11/24 OB Optional Labs: Chlamydia trachomatis RNA Not Detected (NotDetected) 06/22/24 Neisseria gonorrhoeae RNA Not Detected (NotDetected) 06/22/24 Thyroid Stimulating Hormone (TSH) 0.569 uIu/ml (0.300-4.500) 03/20/24 Alpha Fetoprotein Triple Screen SEE NOTE 08/11/24 Resident Activity Tracking Resident Involvement: Resident Care Provided Care Provided: OB Delivery
[2025-01-20 07:56] LABS: Hematocrit (blood only) 28.4 % (37.0-47.0); Hemoglobin 9.4 g/dL (12.0-16.0)
[2025-01-20] MEDS ORDERED: IBUPROFEN 600 MG TAB PO PRN (08:28)
[2025-01-20 08:49] VITALS: BP 110/75; PULSE 71; TEMP 97.7
[2025-01-20] MEDS ORDERED: ACETAMINOPHEN 325 MG TAB PO PRN (14:28)
== END 2025-01-20 13:55 | disposition home or self-care (01) | DRG 788 ==
LOC: 4S1 05:31 → EDSTATUS 07:30 → 4E2 11:37